=== PATIENT | male | born 1995 | race Caucasian/White ===

== ENCOUNTER 2025-10-18 15:41 | Outpatient (CLI) | payer MEDICAID, SELFPAY ==
--- OUTSIDE RECORDS SUMMARY | 2025-10-18 15:48 | XMS_ITS | Clinical Summary ---
Author Organization [facility] Address [facility] [place] [address] Care Team Providers Care Lean Leader Name Role Phone None, Provider MD Primary Care Provider Unavaila ble Allergies Active Allergy Reactions Criticality Noted Date Comments Cephalosporins Unknown 05/03/2015 Erythromycin Unknown 05/03/2015 Cephalexin Hives 09/03/2023 Medications HYDROcodone-ac etaminophen (NORCO) 5-325 MG tabletIndicati ons:Acute Pain < 3 Day Supply Take 1-2 tablets by mouth every 6 (six) hours as needed. Indications : Acute Pain < 3 Day Supply 12 tablet 09/20/20 25 Discontinued Active Problems No known active problems Encounters Date Type Department Care Team Description 09/20/2025 12:13 AM CDT - 09/20/2025 1:11 AM CDT [facility] [address] [place] [address] [place] [address] Chuck De MD Fall Discharge Disposition: Home or Self Care (Routine Discharge) 09/20/2025 Travel 07/26/2025 9:38 PM CDT - 07/26/2025 10:30 PM CDT [facility] [address] [place], [place] [address] [address] Zachary Mendoza MD Abscess Discharge Disposition: Home or Self Care (Routine Discharge) 07/26/2025 Travel from Last 3 Months Social History Tobacco Use Types Packs/Day Years Used Date Smoking Tobacco: Former Cigarettes Smokeless Tobacco: Never Tobacco Cessation:Counseling Given: Not Answered Alcohol Use Standard Drinks/Week Comments Not Currently 0 (1 standard drink = 0.6 oz pur e alcohol) Sex and Gender Information Value Date Recorded Sex Assigned at Male 03/14/2025 2:22 PM CDT Legal Sex Male 9:04 PM CDT Gender Identity Not on file Sexual Orientation Not on file Last Filed Vital Signs Vital Sign Reading Time Taken Comments Blood Pressure 118/62 09/20/2025 12:22 AM CDT Pulse 54 09/20/2025 12:22 AM CDT Temperature 36.7 C (98.1 F) 09/20/2025 12:22 AM CDT Respiratory Rate 16 09/20/2025 12:22 AM CDT Oxygen Saturation 100% 09/20/2025 12:22 AM CDT Inhaled Oxygen Concentration - - Weight 98 kg (216 lb) 09/20/2025 12:22 AM CDT Height 185.4 cm (6' 1) 09/20/2025 12:22 AM CDT Body Mass Index 28.5 09/20/2025 12:22 AM CDT Plan of Treatment Health Maintenance Due Date Last Done Comments Annual Physical 1997 Hepatitis C 2012 DTaP, Tdap and Td Vaccines (3 - Td or Tdap) 10/16/2019 10/16/2009, 07/01/1999, 02/23/1996, Additional history exists HPV Vaccines (1 - 3-dose SCDM series) 2021 COVID-19 Vaccine ( season) 2025 Influenza Adult (#1) 2025 Hepatitis B Vaccines Completed 08/05/1995, 04/28/1995, 02/24/1995 Meningococcal Vaccine Aged Out 10/16/2009 No kayla yudith eligible based on patient's age to complete this topic Hepatitis A Vaccines Aged Out No long er eligible based on patient's age to complete this topic Meningococcal B Vaccine Aged Out No l onger eligible based on patient's age to complete this topic Pneumococcal Vaccine: Pediatrics (0 to 5 Years) and At-Risk Patients (6 to 49 Years) Aged Out No longer eligible based on patient's age to complete this topic RSV Immunizations Under 20 Months Aged Out No longer eligible based on patient's age to complete this topic Procedures Procedure Name Priority Date/Time Associated Diagnosis Comments XR HAND RT 3V STAT 09/20/2025 12:45 AM CDT from Last 3 Months Results * XR HAND RT 3V (09/20/2025 12:45 AM CDT) Anatomical Region Laterality Modality Hand Radiographic Charlette ging 09/20/2025 12:4 7 AM CDT Impressions 09/20/2025 12:48 AM CDT IMPRESSION: No acute osseous abnormality. Referred By: Interpreted By: Krishan Buchanan MD, 09/20/2025 12:47 AM Narrative 09/20/2025 12:48 AM CDT [address] [place] [address] Examination: XR HAND RT 3V Exam time: 09/20/2025 12:45 AM Indication: Fall. Swelling to the right hand in the 3rd-5th metacarpal region. Comparison: None available Technique: 3 views of the right hand, 3 images. Findings: No evidence of fracture or dislocation. The joint spaces are well-maintained, and osseous alignment is normal. No radiographically evident soft tissue abnormality. Procedure Note Krishan Buchanan MD - 09/20/[address] [place] [address] Examination: XR HAND RT 3V Exam time: 09/20/2025 12:45 AM Indication: Fall. Swelling to the right hand in the 3rd-5th metacarpalregion. Comparison: None available Technique: 3 views of the right hand, 3 images. Findings: No evidence of fracture or dislocation. The joint spaces arewell-maintained, and osseous alignment is normal. No radiographicallyevident soft tissue abnormality. IMPRESSION: No acute osseous abnormality. Referred By: Interpreted By: Krishan Buchanan MD, 09/20/2025 12:47 AM Chuck De MD GENERAL IMAGING Final Res ult from Last 3 Months Insurance [employer] Care Teams Lean Leader Relationship Specialty Start Date End Date None, Provider, MD PCP - General UNKNOWN PHYSICIAN SPECIALTY 09/03/23
[2025-10-18 16:19] LABS: Hematocrit 44.2 % (40.0-54.0); Hemoglobin 15.2 g/dL (14.0-18.0); Immature Granulocyte Percent A 0.5 % (0.0-0.0); Lymphocytes Absolute Auto 1.77 K/mm3 (1.10-4.50); Mean Corpuscular HGB Conc 34.4 g/dL (32-36); Mean Corpuscular Hemoglobin 30.8 pg (27.0-31.0); Mean Corpuscular Volume 89.7 fL (78.0-102.0); Nucleated Red Blood Cells Absolute Auto 0.00 K/mm3 (0.00-0.00); Nucleated Red Blood Cells Perc 0.0 % (0-0.0); Platelet Count Result 203 K/mm3 (150-420); Red Blood Count 4.93 M/mm3 (4.70-6.10); White Blood Count 6.5 K/mm3 (4.8-10.8)
[2025-10-18 16:57] LABS: Alanine Aminotransferase 51 U/L (6-50); Albumin Level 4.9 g/dL (3.5-5.1); Alkaline Phosphatase 51 U/L (38-126); Anion Gap 10 mmol/L (4-12); Aspartate Amino Transferase 50 U/L (17-59); Bilirubin,Total 0.9 mg/dL (0.2-1.3); Blood Urea Nitrogen 11 mg/dL (9-20); Calcium 9.8 mg/dL (8.4-10.2); Carbon Dioxide 30 mmol/L (22-30); Chloride 103 mmol/L (98-107); Estimated Glomerular Filt Rate > 60; Glucose 74 mg/dL (65-110); Osmolality Calculated 294 mOsm/kg (285-295); Potassium 4.2 mmol/L (3.4-5.0); Sodium 143 mmol/L (137-145); Total Protein 6.9 g/dL (6.3-8.2)
[2025-10-18 17:28] LABS: Thyroid Stimulating Hormone 0.937 uIU/mL (0.465-4.680)
[2025-10-18 17:54] LABS: Vitamin B12 298.0 pg/mL (239-931)
[2025-10-21 05:07] LABS: FSH 4.5 mIU/mL (1.5-12.4); LH 9.1 mIU/mL (1.7-8.6)
[2025-10-22 21:06] LABS: Free Testosterone (Direct) 10.3 pg/mL (8.7-25.1)
[2025-10-25 03:07] LABS: Estradiol, Sensitive 20.0 pg/mL (8.0-35.0)
== END 2025-10-18 15:42 | disposition home or self-care (01) ==
LOC: CHSLAB 15:46
PROVIDERS: PCP Registered Nurse; Visit Provider Registered Nurse
DX: Z31.41 Encounter for fertility testing (principal); E29.1 Testicular hypofunction; R53.83 Other fatigue
CPT/HCPCS: 36415; 80053; 82306; 82607; 82670; 83001; 83002; 84270; 84402; 84403; 84443; 85025

== ENCOUNTER 2025-10-23 11:15 | Outpatient (CLI) | payer OTHER, SELFPAY ==
--- NOTE | 2025-10-23 | SEMFERTCOM_PTH ---
PATIENT: Kenneth Trevizo LOC: [facility]#:[id number] AGE/SX: 29/M ROOM: RE10/23/[address]: Dani Min, BILL : 1995 BED: DIS: 10/23/2025 SPEC #: [id number] RECD: 10/23/25 12:33 STATUS: ENT REQ #: [id number] ILIA: 10/23/25 00:[address]: MechelleDani DEPT: [facility] RECD BY: Jacqueline Desouza MLT, ([facility]) Procedures: Semen Fert PAP Stain
--- OUTSIDE RECORDS SUMMARY | 2025-10-23 12:53 | XMS_ITS | Clinical Summary ---
Author Organization [facility] Address [facility] [place] [address] Care Team Providers Care Manager Wastewater Name Role Phone None, Provider MD Primary Care Provider Unavaila ble Allergies Active Allergy Reactions Criticality Noted Date Comments Cephalosporins Unknown 05/03/2015 Erythromycin Unknown 05/03/2015 Cephalexin Hives 09/03/2023 Medications No known medications Active Problems No known active problems Encounters Date Type Department Care Team Description 09/20/2025 12:13 AM CDT - 09/20/2025 1:11 AM CDT Emergency [facility] [address] [place] [address] [place] [address] Chuck De MD Fall Discharge Disposition: Home or Self Care (Routine Discharge) 09/20/2025 Travel 07/26/2025 9:38 PM CDT - 07/26/2025 10:30 PM CDT [facility] [address] [place] [address] [place] [address] Zachary Mendoza MD Abscess Discharge Disposition: Home [...] 12:47 AM Narrative 09/20/2025 12:48 AM CDT [address] [place] [address] Examination: XR HAND RT 3V Exam time: [...] Procedure Note Krishan Buchanan MD - 09/20/[address] [place] [address] Examination: XR HAND RT 3V Exam time: [...] Res ult from Last [address] [facility] Care Teams Manager Wastewater Relationship Specialty Start Date End Date None, Provider, PCP - General UNKNOWN PHYSICIAN SPECIALTY 09/03/23
--- OUTSIDE RECORDS SUMMARY | 2025-10-23 12:53 | XMS_ITS | Encounter Summary ---
Author Organization [facility] Address [facility] [place] [address] Care Team Providers Care Orthodontist Vice President Name Role Phone None, Provider Primary Care Provider Unavaila ble Encounter Details Date Type Department Care Team (Late st Contact Info) Description 04/30/2019 Abstract [facility] CONVERSION [address] [place] [address] , Generic Conversion, Social History Tobacco Use Types Packs/Day Years Used Date Smoking Tobacco: Never Assessed Sex and Gender Information Value Date Recorded Sex Assigned at Male 03/14/2025 2:22 PM CDT Legal Sex Male 9:04 PM CDT Gender Identity Not on file Sexual Orientation Not on file documented as of this encounter Plan of Treatment Not on file documented as of this encounter Visit Diagnoses Not on filedocumented in this encounter Care Teams Orthodontist Vice President Relationship Specialty Start Date End Date None, Provider, PCP - General UNKNOWN PHYSICIAN SPECIALTY 09/03/23 documented as of this encounter
[2025-10-23 14:03] LABS: Semen Immotility 100 %; Semen Non-Progressive Motility 0 %; Semen Progressive Motility 0 % (>32); Semen Total Motility 0 (>40% (PM+NP)); Volume Semen 1.0 mL (1.5-5.0)
[2025-10-23 14:04] LABS: Semen Morphology Result to Follow; Sperm Count 79.5 Mil/mL (60-150 million/mL)
== END 2025-10-23 11:16 | disposition home or self-care (01) ==
LOC: CHSLAB 11:16
PROVIDERS: PCP Registered Nurse; Visit Provider Registered Nurse
DX: Z31.41 Encounter for fertility testing (principal); E29.1 Testicular hypofunction; R53.83 Other fatigue
CPT/HCPCS: 88160; 89320